=== PATIENT | male | born 1990 | race Caucasian/White ===

== ENCOUNTER 2020-01-13 16:17 | Emergency (ER) | payer SELFPAY ==
[~2020-01-13] VITALS: Ht 182.9 cm; Wt 115.7 kg
[2020-01-13 16:29] VITALS: Ht 182.9 cm; Wt 115.7 kg
[2020-01-13 18:12] VITALS: BP 140/71
== END 2020-01-13 18:12 | disposition home or self-care (01) ==
LOC: ED 16:17
DX: S93.402A Sprain of unspecified ligament of left ankle, initial encounter (principal); W18.40XA Slipping, tripping and stumbling without falling, unspecified, initial encounter; Y93.89 Activity, other specified; Y92.89 Other specified places as the place of occurrence of the external cause; Y99.8 Other external cause status